=== PATIENT | female | born 1945 | race Caucasian/White ===

== ENCOUNTER 2021-11-25 07:54 | Observation (INO) ==
[2021-11-25 08:44] LABS: Basophils # 0.1 K/mcL (0.0-0.2); Basophils % 0.6 %; Eosinophils # 0.2 K/mcL (0.0-0.6); Eosinophils % 2.3 %; Hematocrit 39.6 % (35.3-44.9); Hemoglobin 12.6 g/dL (11.5-15.4); Immature Granulocytes % 0.5 % (0-4); Lymphocytes % 21.5 %; Mean Corpuscular HGB Conc 31.8 g/dL (31.6-35.5); Mean Corpuscular Hemoglobin 30.1 pg (28.0-33.3); Mean Corpuscular Volume 94.5 fL (83.0-100.0); Mean Platelet Volume 10.4 fL (9.4-12.4); Monocytes # 0.5 K/mcL (0.0-1.3); Monocytes % 5.6 %; Neutrophils # 6.4 K/mcL (1.6-8.9); Platelet Count 231 K/mcL (140-400); Red Blood Count 4.19 M/mcL (3.82-4.97); Red Cell Distribution Width 14.3 % (11.5-14.5); Segmented Neutrophils % 69.5 %; White Blood Count 9.3 K/mcL (4.3-11.1)
[2021-11-25] MEDS ORDERED: Isovue-370 500 ML BOTTLE IVP ONE (08:53)
[2021-11-25 09:13] LABS: BUN/Creatinine Ratio 18 (6-26); Blood Urea Nitrogen 17 mg/dL (8-23); Carbon Dioxide 28 mEq/L (23-29); Chloride 102 mEq/L (98-107); Glucose 105 mg/dL (70-105); Osmolality,Calculated 290 (280-300); Potassium 3.7 mEq/L (3.5-5.1); Sodium 139 mEq/L (136-145); Troponin I < 0.03 ng/mL (< 0.04); eGFR For African Americans > 60 (> 60); eGFR For Non-African Americans 56 (> 60)
[2021-11-25 10:39] LABS: Influenza A PCR Negative (Negative); Influenza B PCR Negative (Negative); Resp. Syncytial Virus PCR Negative (Negative)
[2021-11-25 10:50] LABS: SARS-CoV-2 by PCR (In House) Negative (Negative)
[2021-11-25] MEDS ORDERED: Ondansetron 4 MG/2 ML VIAL IVP PRN (13:34)
[2021-11-25] MEDS ORDERED: Naloxone 0.4 MG/ML INJ IVP PRN (13:34)
[2021-11-25] MEDS ORDERED: Perflutren Lipid Microsphere 1.3 ML in 0.9 % Sodium Chloride 8.7 ML IVP PRN (13:37)
[2021-11-25] MEDS ORDERED: methylPREDNISolone 125 MG/2 ML VIAL IVP ONE (14:07)
[2021-11-25] MEDS: Azithromycin 500 MG in D5% in Water 250 ML IVPB SCH (14:47)
[2021-11-25] MEDS ORDERED: MethylPREDNISolone 40 MG/ML VIAL IVP SCH (16:00)
[2021-11-25 16:09] LABS: ABG Base Excess 3 mEq/L (-2 to 3); ABG HCO3 28 mEq/L (21-27); ABG Oxygen Saturation 93 % (95-98); ABG PCO2 40 mmHg (35-45); ABG PH 7.45 pH Units (7.32-7.45); ABG PO2 63 mmHg (85-104); ABG TCO2 29 mEq/L (20-26)
[2021-11-25] MEDS: Ipratropium/Albuterol Neb 3 ML IH SCH ×2 (16:09→20:23)
[2021-11-25] MEDS ORDERED: NON-FORMULARY MEDICATION 1 EACH EACH (Albuterol Sulfate 8.5 GM Hfa.Aer.Ad) IH PRN (18:12)
[2021-11-25] MEDS: QUEtiapine Fumarate 25 MG TABLET PO SCH (21:17)
[2021-11-25] MEDS: Benzonatate 100 MG CAPSULE PO PRN (21:17)
[2021-11-25] MEDS: rOPINIRole 1 MG TABLET PO SCH (21:17)
[2021-11-25] MEDS: MethylPREDNISolone 40 MG/ML VIAL IVP SCH (23:34)
[2021-11-26 01:41] LABS: Basophils % 0.2 %; Hemoglobin 12.5 g/dL (11.5-15.4); Immature Granulocytes % 0.6 % (0-4); Lymphocytes # 0.5 K/mcL (0.6-4.6); Lymphocytes % 5.7 %; Mean Corpuscular HGB Conc 32.1 g/dL (31.6-35.5); Mean Corpuscular Volume 93.8 fL (83.0-100.0); Mean Platelet Volume 10.9 fL (9.4-12.4); Monocytes % 0.5 %; Neutrophils # 7.5 K/mcL (1.6-8.9); Platelet Count 238 K/mcL (140-400); Red Blood Count 4.16 M/mcL (3.82-4.97); Red Cell Distribution Width 14.6 % (11.5-14.5); White Blood Count 8.1 K/mcL (4.3-11.1)
[2021-11-26 02:01] LABS: Alanine Aminotransferase 13 Units/L (7-52); Albumin 3.9 g/dL (3.5-5.7); Albumin/Globulin Ratio 1.6 (1.1-2.2); Alkaline Phosphatase 73 Units/L (34-104); Aspartate Amino Transferase 12 Units/L (13-39); BUN/Creatinine Ratio 18 (6-26); Bilirubin,Total 0.6 mg/dL (0.3-1.0); Blood Urea Nitrogen 18 mg/dL (8-23); Calcium 10.1 mg/dL (8.6-10.3); Carbon Dioxide 24 mEq/L (23-29); Chloride 100 mEq/L (98-107); Chol/HDL Ratio 2.7 (0-4.9); Cholesterol 219 mg/dL (< 200); Globulin 2.5 g/dL (2.4-3.5); Glucose 292 mg/dL (70-105); HDL Cholesterol 81 mg/dL (40-59); LDL Cholesterol,Calculated 118 mg/dL (< 100); Osmolality,Calculated 295 (280-300); Potassium 4.3 mEq/L (3.5-5.1); Sodium 136 mEq/L (136-145); Total Protein 6.4 g/dL (6.4-8.9); Triglycerides 102 mg/dL (< 150); eGFR For African Americans > 60 (> 60); eGFR For Non-African Americans 54 (> 60)
[2021-11-26] MEDS: Ipratropium/Albuterol Neb 3 ML IH SCH ×2 (03:56→07:26)
[2021-11-26] MEDS: *HR* Enoxaparin 40 MG/0.4 ML SYRINGE SQ SCH (05:11)
[2021-11-26] MEDS: Acetaminophen 325 MG TABLET PO PRN ×2 (05:12→23:13)
[2021-11-26] MEDS: hydroCHLOROthiazide 25 MG TABLET PO SCH (08:45)
[2021-11-26] MEDS: MethylPREDNISolone 40 MG/ML VIAL IVP SCH ×3 (08:46→23:13)
[2021-11-26] MEDS: FLUoxetine 20 MG CAPSULE PO SCH (08:46)
[2021-11-26] MEDS: rOPINIRole 1 MG TABLET PO SCH ×3 (08:46→19:41)
[2021-11-26] MEDS ORDERED: Saliva Stimulant 44.3ml BOTTLE PO PRN (09:14)
[2021-11-26 10:45] LABS: Estimated Average Glucose 140 mg/dl; Hemoglobin A1C 6.5 %
[2021-11-26] MEDS: tiZANidine 4 MG TABLET PO PRN (15:23)
[2021-11-26] MEDS: Benzonatate 100 MG CAPSULE PO PRN (15:23)
[2021-11-26] MEDS: Azithromycin 500 MG in D5% in Water 250 ML IVPB SCH (15:23)
[2021-11-26] MEDS: Levalbuterol Neb 0.63 MG/3 ML IH SCH ×2 (15:40→20:03)
[2021-11-26] MEDS: Magic Mouthwash 10 ML UD Cup PO SCH ×2 (18:35→18:36)
[2021-11-26] MEDS: QUEtiapine Fumarate 25 MG TABLET PO SCH (19:41)
[2021-11-27] MEDS: Levalbuterol Neb 0.63 MG/3 ML IH SCH ×3 (03:46→15:37)
[2021-11-27] MEDS: *HR* Enoxaparin 40 MG/0.4 ML SYRINGE SQ SCH (05:34)
[2021-11-27] MEDS: FLUoxetine 20 MG CAPSULE PO SCH (09:05)
[2021-11-27] MEDS: tiZANidine 4 MG TABLET PO PRN (09:05)
[2021-11-27] MEDS: Benzonatate 100 MG CAPSULE PO PRN (09:05)
[2021-11-27] MEDS: hydroCHLOROthiazide 25 MG TABLET PO SCH (09:05)
[2021-11-27] MEDS: rOPINIRole 1 MG TABLET PO SCH ×2 (09:05→15:26)
[2021-11-27] MEDS: Magic Mouthwash 10 ML UD Cup PO SCH ×3 (09:06→15:26)
[2021-11-27] MEDS: MethylPREDNISolone 40 MG/ML VIAL IVP SCH ×2 (09:06→15:26)
[2021-11-27 11:42] VITALS: BP 116/66; PULSE 90; TEMP 98.3
[2021-11-27] MEDS ORDERED: Azithromycin 250 MG TABLET PO SCH (15:00)
[2021-11-27 15:39] VITALS: O2SAT 93
== END 2021-11-27 16:12 | disposition home or self-care (01) ==
LOC: EMEROOARM 07:54 → 2ANU 07:54
PROVIDERS: ADMIT General Practice; ATTEND General Practice